=== PATIENT | female | born 1965 | race Caucasian/White ===

== ENCOUNTER → 2016-08-11 | Outpatient (CLI) | payer OTHER ==
--- NOTE | 2016-08-11 18:40 | MR ---
EXAMINATION TYPE: MR cervical spine wo con DATE OF EXAM: 08/11/2016 5:53 PM COMPARISON: NONE HISTORY: Radiculopathy, cervical region, pain, swelling TECHNIQUE: Multiplanar, multisequence images of the cervical spine were acquired. C2-C3: No evidence for degenerative disc disease. No disc bulge/herniation or protrusion. No Canal stenosis. Foramina are patent bilaterally. C3-C4: No evidence for degenerative disc disease. No disc bulge/herniation or protrusion. No Canal stenosis. Foramina are patent bilaterally. C4-C5: No evidence for degenerative disc disease. No disc bulge/herniation or protrusion. No Canal stenosis. Foramina are patent bilaterally. C5-C6: Moderate disc desiccation is noted. Circumferential disc bulge greatest posteriorly with effac ement of the ventral thecal sac. Bilateral right greater than left foraminal encroachment. No evidenc e for yareli herniation or central stenosis. C6-C7: Moderate disc desiccation is noted. Circumferential disc bulge greatest posteriorly with effac ement of the ventral thecal sac. Bilateral foraminal encroachment. No evidence for yareli herniation o r central stenosis. C7-T1: No evidence for degenerative disc disease. No disc bulge/herniation or protrusion. No Canal stenosis. Foramina are patent bilaterally. Cervical segments are intact. There is normal alignment. Cervical spinal cord is of normal signal. Craniovertebral junction relationships are within normal limits. IMPRESSION: 1. Degenerative disc disease as discussed. 2. Disc bulging with foraminal encroachment as above.
== END ==
LOC: RADMRIMAIN 17:16
PROVIDERS: ATTEND Internal Medicine Rheumatology
DX: M50.31 Other cervical disc degeneration, high cervical region (principal); M50.321 Other cervical disc degeneration at C4-C5 level
CPT/HCPCS: 72141

== ENCOUNTER → 2016-09-06 | Outpatient (CLI) | payer OTHER ==
--- NOTE | 2016-09-06 16:17 | MR ---
EXAMINATION TYPE: MR shoulder LT wo con DATE OF EXAM: 09/06/2016 3:40 PM COMPARISON: NONE HISTORY: LEFT SHOULDER PAIN for 6 months with difficulty raising arm overhead with abnormal ultrasoun d per patient, RTC tear OR RUPTURE per order. TECHNIQUE: Multiplanar, multisequence imaging of the left shoulder is performed without contrast. FINDINGS: Rotator Cuff: Supraspinatus and infraspinatus tendons are intact to the humeral head attachment. No f ull-thickness retracted tear is seen . Rotator cuff muscle bulk is preserved. Subscapularis tendon is intact. Acromioclavicular Joint: There is some capsular hypertrophy and joint space loss at acromioclavicular joint. Inferior fat plane is effaced seen best on parasagittal image 14. Glenohumeral Joint: There is small glenohumeral joint effusion. Joint space loss is present. No signi ficant spurring is seen. Labrum: The labrum appears grossly intact given limitation of non-arthrogram study. Biceps Tendon: The long head of biceps is in normal location within bicipital groove. Bone marrow signal: Some heterogeneity consistent with red marrow reconversion is present. Other: No additional significant abnormality is appreciated. IMPRESSION: No full-thickness rotator cuff or labral tear is identified. Degenerative changes left sh oulder as detailed above. Acromioclavicular joint impingement suspected, clinical correlation advised .
== END | disposition home or self-care (01) ==
LOC: RADMRIMAIN 14:23
PROVIDERS: ATTEND Physician Assistant
DX: M25.812 Other specified joint disorders, left shoulder (principal)